=== PATIENT | female | born 1995 | race American Indian/Alaskan Native ===

== ENCOUNTER 2019-01-31 14:05 | Emergency (ER) | payer OTHER ==
[2019-01-31 14:12] VITALS: BP 114/50
[2019-01-31] MEDS ORDERED: IBUPROFEN PO ONE (14:52)
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
== END 2019-01-31 16:37 | disposition home or self-care (01) ==
LOC: ED 14:05
DX: S10.93XA Contusion of unspecified part of neck, initial encounter (principal); Y08.89XA Assault by other specified means, initial encounter; Y93.9 Activity, unspecified; Y92.89 Other specified places as the place of occurrence of the external cause; Y99.8 Other external cause status
CPT/HCPCS: 70450; 72125